=== PATIENT | female | born 1990 | race Caucasian/White ===

== ENCOUNTER 2018-12-12 01:51 | Emergency (ER) | payer MEDICAID ==
[~2018-12-12] VITALS: Ht 162.6 cm; Wt 60.6 kg
[~2018-12-12 01:51] MED LIST: MUPI22OI2 TP; PRED5DRO15 EACHEYE
[2018-12-12] MEDS ORDERED: MELA1TAB6 PO (02:27)
[2018-12-12] MEDS ORDERED: PHENAZOPYRIDINE 200 MG TABLET PO ONE (02:30)
[2018-12-12] MEDS ORDERED: PHENAZOPYRIDINE 200 MG TABLET ONE (02:30)
--- NOTE | 2018-12-12 02:33 | NUR ---
TASK RN: PT MEDICATED PER MAR.
[2018-12-12 02:38] LABS: HCG UR SG 1.003 (1.003-1.030)
[2018-12-12 02:43] LABS: MICROSCOPIC INDICATED
[2018-12-12 02:44] LABS: CULTURE INDICATED? YES
[2018-12-12 03:27] VITALS: BP 119/74
== END 2018-12-12 03:29 | disposition home or self-care (01) ==
LOC: ED 03:22
DX: N39.0 Urinary tract infection, site not specified (principal)
CPT/HCPCS: 81001; 81025; 87077; 87086; 87186; 99283